=== PATIENT | female | born 1965 | race African-American/Black ===

== ENCOUNTER → 2017-04-27 | Outpatient (CLI) | payer MEDICARE | END | disposition home or self-care (01) | LOC: CFH 10:59 | PROVIDERS: ATTEND Family Medicine | DX: Z12.31 Encounter for screening mammogram for malignant neoplasm of breast (principal) | CPT/HCPCS: G0202 ==

== ENCOUNTER → 2017-06-24 | Outpatient (CLI) | payer MEDICARE | END | disposition home or self-care (01) | LOC: CFH 08:27 | PROVIDERS: ATTEND Internal Medicine | DX: I77.811 Abdominal aortic ectasia (principal); B19.20 Unspecified viral hepatitis C without hepatic coma | CPT/HCPCS: 76700 ==

== ENCOUNTER 2020-01-04 13:09 | Emergency (ER) | payer MEDICARE ==
[~2020-01-04] VITALS: Ht 160 cm; Wt 89.4 kg
[~2020-01-04 13:09] MED LIST: ALBU2.5V11 NEB; ASPI81TA45 PO; ATEN25TA PO; CLOP75TA PO; FURO-93 PO; HYDR50TA99 PO; HYDROCHLOROTH12.5 MG PO; LISI-170 PO; LORA-702 PO; OXYC5TAB3 PO; POTA10TA5 PO; RISP1TAB3 PO; SPIR25TA PO
[2020-01-04 13:14] VITALS: BP 175/104
[2020-01-04 14:24] LABS: ALANINE AMINOTRANSFERASE 38 U/L (12-78); ALBUMIN 2.9 g/dL (3.4-5.0); ANION GAP 6 mmol/L (5-15); CALCIUM 8.7 mg/dL (8.5-10.1); CHLORIDE 110 mmol/L (98-107)
[2020-01-04 14:28] LABS: ALKALINE PHOSPHATASE 80 U/L (45-117); BILIRUBIN,TOTAL 0.4 mg/dL (0.2-1.0); TOTAL PROTEIN 7.8 g/dL (6.4-8.2)
[2020-01-04 15:05] LABS: MD YES; MEAN CORPUSCULAR HEMOGLOBIN 19.7 pg (27.0-34.8); MEAN CORPUSCULAR VOLUME 66.2 fL (80-100); MEAN PLATELET VOLUME 9.5 fL (7.4-10.4); PLATELET COUNT 324 x10^3/uL (130-400); RED BLOOD COUNT 4.57 x10^6/uL (3.82-5.3); RED CELL DISTRIBUTION WIDTH 25.3 % (9.6-15.2)
[2020-01-04] MEDS ORDERED: POTASSIUM CHLORIDE 20 MEQ TAB.ER.PRT ONE (15:10)
[2020-01-04 15:21] LABS: MEAN CORPUSCULAR HGB CONC 29.8 g/dL (32.4-35.8)
[2020-01-04 15:28] LABS: BASOS#(MANUAL) 0.04 x10^3/uL (0-0.1); BASOS% (MANUAL) 1 % (0-1); EOS#(MANUAL) 0.17 x10^3/uL (0.0-0.4); EOS% (MANUAL) 4 % (1-7); LYMPH#(MANUAL) 1.16 x10^3/uL (1-3.4); LYMPHS% (MANUAL) 27 % (22-44); MONOS#(MANUAL) 0.22 x10^3/uL (0.3-2.7); MONOS% (MANUAL) 5 % (2-9); SEG#(MANUAL) 2.71 x10^3/uL (1.8-6.8); SEGS% (MANUAL) 63 % (42-75)
[2020-01-04 15:29] LABS: HYPOCHROMIA 2+; MICROCYTOSIS 2+; OVALOCYTES 1+; TARGET CELLS 1+
[2020-01-04] MEDS ORDERED: POTASSIUM CHLORIDE 20 MEQ TAB.ER.PRT PO ONE (15:30)
[2020-01-04 15:36] LABS: <PLATELET ESTIMATE> ADEQUATE; <PLT MORPHOLOGY> NORMAL PLT MORPH; POLYCHROMASIA 1+
== END 2020-01-04 15:32 | disposition home or self-care (01) ==
LOC: ED 13:41
DX: R60.9 Edema, unspecified (principal); R06.02 Shortness of breath; I11.0 Hypertensive heart disease with heart failure; I50.9 Heart failure, unspecified; F32.9 Major depressive disorder, single episode, unspecified
CPT/HCPCS: 36415; 80053; 83880; 85025; 99283